=== PATIENT | male | born 1960 | race African-American/Black ===

== ENCOUNTER 2020-12-05 16:15 | Emergency (ER) | payer MEDICAID ==
[~2020-12-05] VITALS: Ht 180.3 cm; Wt 97.0 kg
[2020-12-05 17:51] LABS: CLARITY URINE CLEAR (CLEAR); COLOR URINE YELLOW (YELLOW); KETONES URINE NEGATIVE (NEGATIVE); LEUKOCYTE ESTERASE URINE NEGATIVE (NEGATIVE); NITRITE URINE NEGATIVE (NEGATIVE); OCCULT BLOOD URINE NEGATIVE (NEGATIVE); PROTEIN URINE NEGATIVE (NEGATIVE); SPECIFIC GRAVITY URINE 1.008 (1.005-1.030)
[2020-12-05 23:35] VITALS: BP 125/87
== END 2020-12-05 23:42 | disposition home or self-care (01) ==
LOC: ER 16:15
DX: I10 Essential (primary) hypertension (principal); R42 Dizziness and giddiness; R06.6 Hiccough
CPT/HCPCS: 36415; 71045; 80053; 81003; 83880; 84484; 93005; 99283